=== PATIENT | male | born 1950 | race Caucasian/White ===

== ENCOUNTER → 2023-07-24 | Outpatient (CLI) | payer OTHER ==
[~2023-07-24] MED LIST: AMLO5; Aspir 8181 MG; LISI20; METF500
[2023-07-24 12:50] LABS: Stool Occult Bld Immuno 1 Negative (NEGATIVE)
== END ==
LOC: LAB SHORT 07:15 → LAB 07:15
PROVIDERS: Physician Assistant
DX: Z12.11 Encounter for screening for malignant neoplasm of colon (principal)
CPT/HCPCS: G0328

== ENCOUNTER 2025-01-07 09:33 | Day surgery (SDC) | payer OTHER ==
[~2025-01-07] VITALS: Ht 180.3 cm; Wt 89.9 kg
[~2025-01-07 09:33] MED LIST changes: +Bupivacaine 0.5% W/EPI 1:200000 SDV 30 ML Vial ONE
[2025-01-07] MEDS ORDERED: CeFAZolin Sodium 2,000 MG VIAL ONE (09:54)
[2025-01-07] MEDS ORDERED: Lactated Ringer's 1,000 ML IV ONE ×3 (09:55→12:30)
[2025-01-07] MEDS ORDERED: TAMSULOSIN HCL0.4 M1 PO (10:06)
[2025-01-07] MEDS ORDERED: PROSTA GENIX (10:06)
[2025-01-07] MEDS ORDERED: CHOLESTOFF (10:06)
[2025-01-07] MEDS ORDERED: MULTIVITAMIN (10:07)
[2025-01-07] MEDS ORDERED: GLUCHON (10:08)
[2025-01-07] MEDS ORDERED: OCUVITE (10:09)
[2025-01-07] MEDS ORDERED: COQ1050 MG PO (10:11)
[2025-01-07] MEDS ORDERED: KRILL OIL500 MG PO (10:11)
[2025-01-07] MEDS ORDERED: [UNRECOGNIZED DRUG - OTHER] (10:12)
[2025-01-07] MEDS ORDERED: [UNRECOGNIZED DRUG - OTHER] (10:17)
[2025-01-07] MEDS ORDERED: propofoL 20 ML IV ONE (11:02)
[2025-01-07] MEDS ORDERED: FentaNYL Citrate 50 MCG/ML 2 ML Injection ONE (11:17)
[2025-01-07] MEDS ORDERED: Bupivacaine 0.5% W/EPI 1:200000 SDV 30ML INJ ONE ×2 (11:47)
[2025-01-07] MEDS ORDERED: ePHEDrine Sulfate 50 MG/ML 1ML Injection ONE (11:57)
[2025-01-07] MEDS ORDERED: Ondansetron HCl 2 MG / ML 2ML Vial ONE (12:24)
[2025-01-07] MEDS ORDERED: Dexamethasone Sod Phos 10 MG/ML 1ML VIAL ONE (12:24)
--- NOTE | 2025-01-07 13:11 | NUR ---
01/07/25 1311 Ysabel Hudson PT TRANSFERS TO SDU, DROWSY BUT A&O. PT DENIES PAIN/NAUSEA. VSS, ON RA.
[2025-01-07 13:22] VITALS: BP 113/61
== END 2025-01-07 13:50 | disposition home or self-care (01) ==
LOC: ORSCSDS 09:33
PROVIDERS: Orthopaedic Surgery
PROC: 0LM40ZZ Reattachment of Left Upper Arm Tendon, Open Approach (ICD-10-PCS; principal; 2025-01-07 11:00)
DX: S56.512A Strain of other extensor muscle, fascia and tendon at forearm level, left arm, initial encounter (principal); I10 Essential (primary) hypertension; Z79.899 Other long term (current) drug therapy; Z79.82 Long term (current) use of aspirin
CPT/HCPCS: 82947; C1713; J0690; J1100; J2405; J2704; J3010; J7120

== ENCOUNTER 2025-08-05 10:34 | Day surgery (SDC) | payer OTHER ==
[~2025-08-05] VITALS: Ht 182.9 cm; Wt 84.7 kg
[~2025-08-05 10:34] MED LIST changes: -Bupivacaine 0.5% W/EPI 1:200000 SDV 30 ML Vial ONE; +CHOLESTOFF; +COQ1050 MG PO; +GLUCHON; +KRILL OIL500 MG PO; +MULTIVITAMIN; +OCUVITE; +PROSTA GENIX; +TAMSULOSIN HCL0.4 M1 PO; +[UNRECOGNIZED DRUG - OTHER]; +[UNRECOGNIZED DRUG - OTHER]
[2025-08-05] MEDS ORDERED: CeFAZolin Sodium 2,000 MG VIAL ONE ×2 (10:52→11:13)
[2025-08-05] MEDS ORDERED: MULVITA (11:09)
[2025-08-05] MEDS ORDERED: CINSULIN (11:15)
[2025-08-05] MEDS ORDERED: Dexamethasone Sod Phos 10 MG/ML 1ML VIAL ONE (12:04)
[2025-08-05] MEDS ORDERED: Ondansetron HCl 2 MG / ML 2ML Vial ONE (12:05)
[2025-08-05] MEDS ORDERED: FentaNYL Citrate 50 MCG/ML 2 ML Injection ONE (12:26)
[2025-08-05] MEDS ORDERED: Bupivacaine 0.5% W/EPI 1:200000 SDV 30 ML Vial INJ ONE ×2 (13:52)
--- NOTE | 2025-08-05 14:29 | NUR ---
08/05/25 1429 Michael Ibarra RECEIVED REPORT FROM KAYE ROJAS. PT AWAKE, DENIES PAIN, O2 SATS 94% ON RA, CAP REFILLS LESS THAN 3 SECONDS IN ALL 4 EXTREMITIES. DRESSING C/D/I.
--- NOTE | 2025-08-05 15:12 | NUR ---
08/05/25 1512 Rafaela Raya REPORT RECEIVED FROM CRYSTAL WONG. PATIENT IN RECLINER WITH AT BEDSIDE. PT TOLERATING ORAL FLUIDS WELL. DENIES NAUSEA AND PAIN AT THIS TIME. ICE PACK ON LEFT UPPER ARM AND LEFT ARM ELEVATED ON PILLOW. VSS. HR 45-49, PT REPORTS "IT ALWAYS RUNS LOW". STATES SEEN HIS PRIMARY CARE SUNDAY AND PRIMARY IS AWARE THAT HIS HEART RATE IS LOW. PT DENIES CHEST PAIN, SOB, JAW PAIN OR LIGHTHEADEDNESS.
[2025-08-05 15:29] VITALS: BP 155/73
== END 2025-08-05 15:27 | disposition home or self-care (01) ==
LOC: ORSCSDS 10:34
PROVIDERS: Orthopaedic Surgery
PROC: 0QP104Z Removal of Internal Fixation Device from Sacrum, Open Approach (ICD-10-PCS; principal; 2025-08-05 13:05)
DX: T84.9XXA Unspecified complication of internal orthopedic prosthetic device, implant and graft, initial encounter (principal); Z96.9 Presence of functional implant, unspecified; I10 Essential (primary) hypertension; E78.5 Hyperlipidemia, unspecified; Z87.891 Personal history of nicotine dependence; Z79.899 Other long term (current) drug therapy
CPT/HCPCS: J0690; J1100; J2405; J2704; J3010; J7120